=== PATIENT | male | born 1980 | race Caucasian/White ===

== ENCOUNTER 2021-07-13 20:03 | Emergency (ER) | payer OTHER ==
[~2021-07-13] VITALS: Ht 175.3 cm; Wt 104.3 kg
[2021-07-13 21:50] VITALS: BP 141/79
--- NOTE | 2021-07-13 21:50 | NUR ---
ARRIVAL AMBULATED TO ROOM. GAIT STEADY. ALERT AND ORIENTED X3. FELL OFF OF LADDER, WITNESSED BY BROTHER, OCCURRED 3 DAYS AGO
[2021-07-13] MEDS ORDERED: NORCO 7.5MG PO STA (22:14)
--- NOTE | 2021-07-13 22:21 | ER.PDOC ---
General Chief Complaint: Extremities Stated Complaint: ARM PAIN Time seen by MD: 20:02 Source: patient Exam Limitations: no limitations History of Present Illness Initial Comments 3 days ago fell off a ladder that was 6ft high, no LOC Occurred: other (3 days ago) Where: home Severity: moderate Modifying Factors: pain on movement Allergies: Uncoded Allergies: ASPRIN (Allergy, Unknown, 07/13/21) Past Medical History Medical History: no pertinent history Reviewed Nursing Reviewed: Vital Signs, Abn. Noted, Nursing Assessment Review of Systems Constitutional: no symptoms reported EENTM: no symptoms reported Respiratory: no symptoms reported Gastrointestinal: no symptoms reported Musculoskeletal: muscle pain Skin: no symptoms reported All Other Systems: Reviewed and Negative Physical Exam General Appearance: Alert, No Apparent Distress Hand: nml inspection Wrist: nml inspection Forearm/Elbow: nml inspection Arm/Shoulder: tenderness, limited ROM by pain Neuro/Vasc/Tendon: sensation nml Skin: warm/dry Head/ENT: nml inspection Respiratory: chest non-tender CVS: heart sounds normal Results/Orders Results/Orders Orders - WILBERT PERERA MD Hydrocodone/Acetaminophen ([place] 7.5mg) (07/13/21 22:14) Xr Shoulder Lt 2v (07/13/21 22:14) Hydrocodone/Acetaminophen ([place] 7.5mg) (07/13/21 22:26) Vital Signs Date Time Temp Pulse Resp B/P (MAP) Pulse Ox O2 Delivery O2 Flow Rate FiO2 07/13/21 21:50 98.6 72 20 98 07/13/21 21:50 98.6 72 20 141/79 (99) 98 Room Air 07/13/21 21:50 98.6 72 20 Administered Medications Medications (Trade) Dose Ordered Sig/Rc Route PRN Reason Start Time Stop Time Status Last Admin Dose Admin Acetaminophen/ Hydrocodone Bitart ([place] 7.5mg) 1 each OT STAT PO 07/13/21 22:14 07/13/21 22:17 DC 07/13/21 22:28 1 EACH Progress Progress pain better controlled EKG/XRAY/CT/US XRAY Comments: unremarkable ER DEPART Departure Time of Disposition: 23:21 Disposition: 01 HOME / SELF CARE / HOMELESS Impression: Primary Impression: Shoulder pain, left Condition: Stable Patient Instructions: Shoulder Pain, [id number] Referrals: PCP,UNKNOWN (PCP) PRIMARY CARE PROVIDER OBEY ROSE MD Additional Instructions: call and make an appointment with Dr. Rose Duration or Time Spent with Pa: 8 WILBERT PERERA MD Jul 13, 2021 22:21
[2021-07-13] MEDS ORDERED: NORCO 7.5MG PO ONE (22:26)
--- NOTE | 2021-07-13 22:41 | DIREP ---
PROCEDURE:XRAY SHOULDER MIN 2 VWS-LT COMPARISON:None. INDICATIONS:fell and landed on left shoulder from 6ft ladder FINDINGS: BONES:Normal. JOINTS:Normal glenohumeral and acromioclavicular joints. No evidence for dislocation. SOFT TISSUES:Normal. OTHER:Normal. CONCLUSION:Normal examination. Dictated by: Wing Granados M.D. on 07/13/2021 at 10:39 PM
[2021-07-13 23:36] VITALS: BP 145/73
== END 2021-07-14 00:01 | disposition home or self-care (01) ==
LOC: ER 20:03
DX: M25.512 Pain in left shoulder (principal)
CPT/HCPCS: 99284; 73030-LT